=== PATIENT | female | born 1960 | race Caucasian/White ===

== ENCOUNTER 2016-05-22 15:20 | Emergency (ER) | payer OTHER ==
[2016-05-22 15:27] VITALS: RESP 18
[2016-05-22] MEDS ORDERED: NS 500 ML IV ONE (15:52)
[2016-05-22] MEDS ORDERED: IPRATROPIUM/ALBUTEROL 3 ML DEYVIAL IH ONE (15:53)
--- NOTE | 2016-05-22 15:58 | EDPHY ---
General - History Smoking Status: Current every day smoker Time Seen by Provider: 05/22/16 15:46 Narrative: CHIEF COMPLAINT: Shortness of breath, cough HISTORY OF PRESENT ILLNESS: Patient has 3 days history of cough, shortness of breath, body aches, chills. Symptoms started abruptly. They have been present constantly. Mild 1st now moderate to severe. Worse when lying supine. Some improvement rest. She is a smoker but has not smoked in 2 days. The symptoms are the same as when she had pneumonia in the past. She has had some subjective fever and chills. No nausea or vomiting. Some chest pain with coughing and deep inspiration. This has also been present for 3 days. No abdominal or urinary complaints. She does have lupus and takes Plaquenil for this. No other associated complaints or modifying factors. REVIEW OF SYSTEMS: Ten systems reviewed and are negative unless otherwise noted in the HPI PERTINENT MEDICAL HISTORY: Lupus, taking Plaquenil. Smoker EXAMINATION General Appearance: Alert, no distress Head: normocephalic, atraumatic Eyes: Pupils equal and round, no conjunctival pallor or injection. EOMs intact. ENT, Mouth: Mucous membranes moist. Uvula midline. Neck: Normal inspection, supple, non-tender Respiratory: Right-sided rhonchi and dry crackles. There is some wheezing on the right. No diminishment. No consolidation. No retractions. No distress. Cardiovascular: Regular rate and rhythm. No murmur. Pulses intact distally. Gastrointestinal: Abdomen is soft and nontender Back: non-tender, no bony abnormalities Neurological: A&O, nonfocal, normal gait Skin: Warm and dry, no rash Extremities: Nontender, no pedal edema Psychiatric: Mood and affect normal DIFFERENTIAL DIAGNOSES: Including but not limited to pneumonia, bronchitis, influenza, PE, pneumonitis MDM: 3:50 p.m. Cough, shortness of breath and pleuritic pain. The patient is immune compromised is from her lupus treated with Plaquenil. Vital signs are actually quite good without any tachycardia, tachypnea or hypoxia. Given her pain and smoking status I have also ordered a D-dimer. Clinical suspicion for PE is very low but she does appear to have pneumonia by examination. DuoNeb has been ordered. Laboratory studies, EKG and chest x-ray are pending. 4:25 p.m. Chest x-ray as interpreted by me as a right lower lobe pneumonia. She does not meet SIRS criteria. She does have a heart rate of 96, but she has no tachypnea , no fever. However, given her smoking status, immune compromise, and leukocytosis I have now ordered blood cultures and lactic acid. Also providing IV fluid, and will provide antibiotic coverage appropriate for her status. Plan for admission to the hospital given previous pneumonia with previous outpatient failure. 4:50 p.m. X-rays confirmed a right middle lobe and right lower lobe pneumonia. Her heart rate has slightly increased. We have started cefepime and Levaquin given her immune-compromised status. Proceed with admission for pneumonia. Patient is comfortable this plan. She will be admitted stable condition. 5:10 p.m. I discussed the case with Dr. Pro. She will admit the patient. She is admitted in stable condition. Blood cultures were drawn. Lactic acid is negative. She remains hemodynamically stable with mild, intermittent tachycardia. No hypoxia. No hypotension. SUPERVISION: This patient was independently evaluated without direct examination by the attending physician. Case was discussed with attending physician. Case discussed with Dr. Francis ([facility]) - Diagnostics Imaging Results: Imaging Impressions Chest X-Ray 05/22/16 15:52 Impression: 1. Right middle lobe and right lower lobe acute pneumonia. 2. Recommend follow up until clear. - Objective Vital Signs: Initial Vital Signs Temperature (C) 36.3 C 05/22/16 15:24 Heart Rate 96 05/22/16 15:24 Respiratory Rate 18 05/22/16 15:24 Blood Pressure 108/62 05/22/16 15:24 O2 Sat (%) 94 05/22/16 15:24 O2 Delivery Mode Room Air Allergies/Adverse Reactions: ketorolac tromethamine [From Toradol] Allergy (Mild, Verified 05/22/16 15:24) Abdominal Pain pregabalin [From Lyrica] Allergy (Verified 05/22/16 15:24) prochlorperazine edisylate [From Compazine] Allergy (Verified 05/22/16 15:24) prochlorperazine maleate [From Compazine] Allergy (Verified 05/22/16 15:24) Sulfa (Sulfonamide Antibiotics) Allergy (Verified 05/22/16 15:24) Home Medications: Medication Instructions Recorded Hydroxychloroquine Sulfate 200 mg PO BID 01/14/14 [Plaquenil 200 mg (*)] Venlafaxine Xr [Effexor Xr 75MG 225 mg PO DAILY 01/14/14 (*)] Amitriptyline HCl [Elavil 100 MG 100 mg PO HS 05/22/16 (*)] Levothyroxine [Synthroid 88 mcg 88 mcg PO DAILY06 05/22/16 (*)] levOFLOXACIN [levAQUIN (*)] 750 mg PO DAILY #4 tab 05/22/16 morphINE SR [Ms Contin/Oramorph 15 15 mg PO BID 05/22/16 mg (*)] oxyCODONE/APAP 5/325 [Percocet 1 tab PO TID 05/22/16 5325 (*)] Laboratory Results: Laboratory Results 05/22/16 16:00 05/22/16 16:00 05/22/16 05/22/16 05/22/16 16:40 16:00 16:00 WBC RBC Hgb Hct MCV MCH MCHC RDW Plt Count MPV Neut % (Auto) Lymph % (Auto) [place] % (Auto) Eos % (Auto) Baso % (Auto) Nucleat RBC Rel Count Absolute Neuts (auto) Absolute Lymphs (auto) Absolute Monos (auto) Absolute Eos (auto) Absolute Basos (auto) Absolute Nucleated RBC Immature Gran % Immature Gran # VBG Lactic Acid 1.2 mmol/L mmol/L (0.7-2.1) Sodium 135 mEq/L mEq/L (134-144) Potassium 4.3 mEq/L mEq/L (3.5-5.2) Chloride 103 mEq/L mEq/L (97-110) Carbon Dioxide 22 mEq/l mEq/l (22-31) Anion Gap 10 mEq/L mEq/L (8-16) BUN 9 mg/dL mg/dL (7-23) Creatinine 0.6 mg/dL mg/dL (0.6-1.0) Estimated GFR > 60 Glucose 127 mg/dL H mg/dL (70-100) Calcium 8.8 mg/dL mg/dL (8.5-10.4) Total Bilirubin 0.4 mg/dL mg/dL (0.1-1.4) Conjugated Bilirubin 0.4 mg/dL mg/dL (0.0-0.5) Unconjugated Bilirubin 0.0 mg/dL mg/dL (0.0-1.1) AST 19 IU/L IU/L (14-46) ALT 53 IU/L H IU/L (9-52) Alkaline Phosphatase 179 IU/L H IU/L (38-126) Troponin I < 0.012 ng/mL ng/mL (0-0.034) NT-Pro-B Natriuret Pep 947 pg/mL H pg/mL (0-125) Total Protein 5.5 g/dL L g/dL (6.3-8.2) Albumin 3.1 g/dL L g/dL (3.5-5.0) Lipase < 10.0 IU/L L IU/L (23-300) Influenza Typ A,B (DFA) NEGATIVE FOR FLU (NEGATIVE) 05/22/16 16:00 WBC 12.98 10^3/uL H 10^3/uL (3.80-9.50) RBC 3.16 10^6/uL L 10^6/uL (4.18-5.33) Hgb 10.9 g/dL L g/dL (12.6-16.3) Hct 32.0 % L % (38.0-47.0) MCV 101.3 fL H fL (81.5-99.8) MCH 34.5 pg H pg (27.9-34.1) MCHC 34.1 g/dL g/dL (32.4-36.7) RDW 12.8 % % (11.5-15.2) Plt Count 215 10^3/uL 10^3/uL (150-400) MPV 9.7 fL fL (8.7-11.7) Neut % (Auto) 78.6 % H % (39.3-74.2) Lymph % (Auto) 10.4 % L % (15.0-45.0) [place] % (Auto) 7.9 % % (4.5-13.0) Eos % (Auto) 2.2 % % (0.6-7.6) Baso % (Auto) 0.4 % % (0.3-1.7) Nucleat RBC Rel Count 0.0 % % (0.0-0.2) Absolute Neuts (auto) 10.19 10^3/uL H 10^3/uL (1.70-6.50) Absolute Lymphs (auto) 1.35 10^3/uL 10^3/uL (1.00-3.00) Absolute Monos (auto) 1.03 10^3/uL H 10^3/uL (0.30-0.80) Absolute Eos (auto) 0.29 10^3/uL 10^3/uL (0.03-0.40) Absolute Basos (auto) 0.05 10^3/uL 10^3/uL (0.02-0.10) Absolute Nucleated RBC 0.00 10^3/uL 10^3/uL (0-0.01) Immature Gran % 0.5 % % (0.0-1.1) Immature Gran # 0.07 10^3/uL 10^3/uL (0.00-0.10) VBG Lactic Acid Sodium Potassium Chloride Carbon Dioxide Anion Gap BUN Creatinine Estimated GFR Glucose Calcium Total Bilirubin Conjugated Bilirubin Unconjugated Bilirubin AST ALT Alkaline Phosphatase Troponin I NT-Pro-B Natriuret Pep Total Protein Albumin Lipase Influenza Typ A,B (DFA) Medications Given: Discontinued Medications Albuterol/Ipratropium (Duoneb) 3 ml IH EDNOW ONE Stop: 05/22/16 15:54 Last Admin: 05/22/16 16:30 Dose: 3 ml Sodium Chloride (Ns) 500 mls @ 0 mls/hr IV ONCE ONE PRN Reason: As Directed Stop: 05/22/16 15:53 Last Admin: 05/22/16 16:29 Dose: 500 mls Cefepime HCl 2 gm/ Dextrose 100 mls @ 200 mls/hr IV EDNOW ONE PRN Reason: Protocol Stop: 05/22/16 17:00 Last Admin: 05/22/16 16:57 Dose: 100 mls Levofloxacin/Dextrose (Levaquin 750 Mg (Premix)) 150 mls @ 100 mls/hr IV EDNOW ONE PRN Reason: Protocol Stop: 05/22/16 18:00 Last Admin: 05/22/16 18:22 Dose: 150 mls Departure - Departure Disposition: Home, Routine, Self-Care Clinical Impression: Right middle lobe pneumonia Qualifiers: Pneumonia type: due to unspecified organism Qualified Code(s): J18.1 - Lobar pneumonia, unspecified organism Right lower lobe pneumonia Qualifiers: Pneumonia type: due to unspecified organism Qualified Code(s): J18.1 - Lobar pneumonia, unspecified organism Condition: Good Additional Instructions: Follow up with your primary care doctor tomorrow or return here immediately if you get worse Referrals: Tammi Porter MD [Primary Care Provider] - As per Instructions Prescriptions: levOFLOXACIN [levAQUIN (*)] 750 mg PO DAILY #4 tab
--- NOTE | 2016-05-22 15:58 | CPEKG ---
Heart Rate: 92 RR Interval: 652 P-R Interval: 136 QRSD Interval: 90 QT Interval: 364 QTC Interval: 451 P [place]: 66 QRS [place]: 50 T Wave [place]: 71 EKG Severity - NORMAL ECG - EKG Impression: SINUS RHYTHM Electronically Signed By: Davion Malin 23-May-2016 09:00:03
[2016-05-22 16:11] LABS: % IMMATURE GRANULYOCYTES 0.5 % (0.0-1.1); ABSOLUTE IMMATURE GRANULOCYTES 0.07 10^3/uL (0.00-0.10); ADD DIFF? NO; ADD MORPH? NO; ADD SCAN? NO; ATYPICAL LYMPHOCYTE FLAG 0 (0-99); FRAGMENT RBC FLAG 0 (0-99); HEMOGLOBIN 10.9 g/dL (12.6-16.3); LEFT SHIFT FLG 50 (0-99); LIPEMIA HEMOLYSIS FLAG 90 (0-99); MEAN CELL HEMOGLOBIN 34.5 pg (27.9-34.1); MEAN CELL HEMOGLOBIN CONCENTR. 34.1 g/dL (32.4-36.7); MEAN CELL VOLUME 101.3 fL (81.5-99.8); MEAN PLATELET VOLUME 9.7 fL (8.7-11.7); PLATELET CLUMPS FLAG 0 (0-99); PLATELET COUNT 215 10^3/uL (150-400); RED BLOOD CELL COUNT 3.16 10^6/uL (4.18-5.33); RED CELL DISTRIBUTION WIDTH 12.8 % (11.5-15.2)
[2016-05-22] MEDS ORDERED: CEFEPIME HCL 2 GM in D5W 100 ML IV ONE (16:31)
[2016-05-22 16:36] LABS: ALANINE AMINOTRANSFERASE 53 IU/L (9-52); ALBUMIN 3.1 g/dL (3.5-5.0); ALKALINE PHOSPHATASE 179 IU/L (38-126); ANION GAP 10 mEq/L (8-16); ASPARTATE AMINOTRANSFERASE 19 IU/L (14-46); BILIRUBIN,TOTAL 0.4 mg/dL (0.1-1.4); BILIRUBIN-CONJUGATED 0.4 mg/dL (0.0-0.5); CALCIUM 8.8 mg/dL (8.5-10.4); CARBON DIOXIDE 22 mEq/l (22-31); CHLORIDE 103 mEq/L (97-110); CREATININE 0.6 mg/dL (0.6-1.0); GLOMERULAR FILTRATION RATE > 60; GLUCOSE 127 mg/dL (70-100); POTASSIUM 4.3 mEq/L (3.5-5.2); SODIUM 135 mEq/L (134-144); TOTAL PROTEIN 5.5 g/dL (6.3-8.2)
[2016-05-22 16:46] LABS: TROPONIN I < 0.012 ng/mL (0-0.034)
[2016-05-22] MEDS ORDERED: ACETAMINOPHEN 325 MG TAB PO PRN (18:10)
[2016-05-22] MEDS ORDERED: ONDANSETRON DISINTEGRATING 4 MG TAB PO PRN (18:10)
[2016-05-22] MEDS ORDERED: ONDANSETRON 4 MG/2 ML VIAL IVP PRN (18:10)
[2016-05-22] MEDS ORDERED: ACETAMINOPHEN 500 MG TAB PO ONE (18:50)
[2016-05-22 18:56] VITALS: O2SAT 92
--- NOTE | 2016-05-22 19:13 | GHP ---
[f rep st] HISTORY AND PHYSICAL DATE OF ADMISSION: 05/22/2016 CHIEF COMPLAINT: Pneumonia. HISTORY OF PRESENT ILLNESS: Patient is a 56-year-old female with a history of lupus, migraines, presenting with 3 days fevers, chills, nonproductive cough, and myalgias. She also reports mild shortness of breath today. She has had normal p.o. intake. Denies dysuria. Had some nausea but no vomiting, diarrhea. Has had ill contacts; a friend has been sick with a cold. REVIEW OF SYSTEMS: I completed a 10-point review of systems, negative except as noted in HPI. PAST MEDICAL HISTORY: Lupus, migraines, chronic back pain, hypothyroidism. PAST SURGICAL HISTORY: Right TKA, cholecystectomy. FAMILY HISTORY: Mother with ovarian cancer. SOCIAL HISTORY: Lives in [place] with her son. Tobacco: 10 cigarettes a day for the past 5 years. No alcohol or illicits. ALLERGIES: Lyrica, Compazine, Toradol, sulfa. MEDICATION LIST: Percocet as needed, MS Contin 15 mg b.i.d., Synthroid 88 mcg daily, Plaquenil 200 mg b.i.d., amitriptyline 100 mg q.h.s., Effexor. PHYSICAL EXAM: VITAL SIGNS: Temperature 36.7, blood pressure /62, heart rate 80s to 90s. Respiratory rate 18, 94% on room air. GENERAL: Thin female, in no acute distress. HEENT: PERRLA, EOMI. Moist mucous membranes. CV: Regular rate and rhythm. No murmurs, gallops, rubs. LUNGS: Clear to auscultation bilaterally. ABDOMEN: Soft, nontender, nondistended. Positive bowel sounds. : No suprapubic tenderness. MUSCULOSKELETAL: 5/5 upper and lower extremity strength. SKIN: Warm, dry, no rash or ulceration. NEURO: 2- 12 intact. PSYCH: Alert and oriented x3. LABS: Lactate 1.2. Sodium 135, potassium 4.3, chloride 103, creatinine 0.6, glucose 127, ALT is 53, AST 19, alkaline phosphatase 197. BNP is 947. Troponin less than 0.012. Albumin 3.1, total protein 5.5. Lipase less than 10. Chest x-ray personally reviewed by me: Right middle and right lower lobe pneumonia. EKG personally reviewed by me: Normal sinus rhythm. No ST elevation depression. ASSESSMENT/PLAN: 1. Community-acquired pneumonia: Mild infiltrate on chest x-ray and mildly elevated white count, negative lactate and is not requiring oxygen. Negative influenza. After discussion, patient would like to go home, which I think is reasonable given that she is hemodynamically stable. Will treat for a total of 5 days of antibiotics with Levaquin. She got a dose here. 2. Hypothyroidism: Resume levothyroxine. 3. Depression and anxiety: Continue home medications. 4. Lupus, on Plaquenil. 5. Chronic back pain: Continue MS Contin and Percocet as needed. DISPOSITION: After discussion with the patient, she would like to go home. I think this is reasonable. She will follow up with her PCP, Dr. Porter. /[id number]/MODL MTDD
--- NOTE | 2016-05-22 19:13 | GDS ---
[f rep st] DISCHARGE SUMMARY DISCHARGE DIAGNOSES: 1. Community-acquired pneumonia. 2. History of anxiety. 3. Migraines. 4. Hypothyroidism. 5. Lupus. BRIEF HISTORY OF PRESENT ILLNESS: Patient presented with symptoms consistent with pneumonia and was found to have an infiltrate on chest x-ray. Negative influenza. Patient wished to go home, which I think is reasonable given that she is hemodynamically stable. Will discharge with Levaquin for a total 5 days of antibiotics. Please see detailed H and P for assessment and plan dated today. /[id number]/MODL
[2016-05-22 19:25] VITALS: BP 112/70; PULSE 76; TEMP 97.5
[2016-05-22] MEDS ORDERED: HYDROXYCHLOROQUINE SULFATE 200 MG TAB PO SCH (21:00)
[2016-05-22] MEDS ORDERED: morphINE SR 15 MG TAB PO SCH (21:00)
[2016-05-22] MEDS ORDERED: AMITRIPTYLINE HCL 100 MG TAB PO SCH (21:00)
[2016-05-22] MEDS ORDERED: OXYCODONE/APAP 5/325 TAB PO SCH (22:00)
[2016-05-23] MEDS ORDERED: LEVOTHYROXINE 88 MCG TAB PO SCH (06:00)
[2016-05-23] MEDS ORDERED: VENLAFAXINE XR 75 MG CAP PO SCH (09:00)
[2016-05-23] MEDS ORDERED: AZITHROMYCIN 250 MG TAB PO SCH (09:00)
== END 2016-05-22 19:25 | disposition home or self-care (01) ==
LOC: MERGE 15:20 → UNDOADMOB 17:09
DX: J18.1 Lobar pneumonia, unspecified organism (principal); E03.9 Hypothyroidism, unspecified; M32.9 Systemic lupus erythematosus, unspecified
CPT/HCPCS: 71020; 93005; 96374; 99285; J0692; J1956

== ENCOUNTER 2016-12-16 11:29 | Emergency (ER) | payer OTHER ==
--- NOTE | 2016-12-16 13:19 | CPEKG ---
Heart Rate: 71 RR Interval: 845 P-R Interval: 156 QRSD Interval: 76 QT Interval: 416 QTC Interval: 453 P [place]: 63 QRS [place]: 39 T Wave [place]: 57 EKG Severity - NORMAL ECG - EKG Impression: SINUS RHYTHM Electronically Signed By: Ilia Villanueva 16-Dec-2016 14:24:05
--- NOTE | 2016-12-16 13:19 | CPEKG ---
Heart Rate: 71 RR Interval: 845 P-R Interval: 156 QRSD Interval: 76 QT Interval: 416 QTC Interval: 453 P [place]: 63 QRS [place]: 39 T Wave [place]: 57 EKG Severity - NORMAL ECG - EKG Impression: SINUS RHYTHM Electronically Signed By: Ilia Villanueva 16-Dec-2016 14:24:05
[2016-12-16 13:27] LABS: PLATELET COUNT 204 10^3/uL (150-400)
--- NOTE | 2016-12-16 13:54 | EDPHY ---
H & P Stated Complaint: POSSIBLE MULTIPLE SEIZURES OVER THE WEEKEND. HIT HEAD ON DRESSER Time Seen by Provider: 12/16/16 13:01 HPI/ROS: CHIEF COMPLAINT: Episodes of unexplained shaking and lightheadedness HISTORY OF PRESENT ILLNESS: The patient presents to the ED after she has had 3 episodes of unexplained shaking and lightheadedness over the past week. She describes discrete episodes lasting 5 minutes. She reports she notes a tremor in her arms and generalized weakness. She has to be assisted to a couch and has fallen once. She did strike her head on a couch during 1 of the falls over the weekend. Patient denies any acute headache currently. She does have a history of cluster headache. The patient reports that she is fully conscious during these episodes. The patient does have a history of lupus. She denies fever. She denies any focal numbness or weakness. She currently is asymptomatic. The patient is scheduled to have a follow-up MRI of her brain her history of lupus in the coming weeks. The patient did have an unremarkable MRI of her brain in March of this year during in the ED visit for evaluation of post concussive symptoms. The patient denies any history of cardiac disease. She denies dysuria or additional acute complaints. REVIEW OF SYSTEMS: A comprehensive 10 point review of systems is otherwise negative aside from elements mentioned in the history of present illness. Source: Patient Exam Limitations: No limitations - Personal History Current Tetanus/Diphtheria Vaccine: Yes Current Tetanus Diphtheria and Acellular Pertussis (TDAP): Yes Tetanus Vaccine Date: 2005 - Medical/Surgical History Hx Asthma: No Hx Chronic Respiratory Disease: Yes Hx Diabetes: No Hx Cardiac Disease: No Hx Renal Disease: No Hx Cirrhosis: No Hx Alcoholism: No Hx HIV/AIDS: No Hx Splenectomy or Spleen Trauma: No Other PMH: lupus/cluster migraine headaches/agustín,right knee replacement PNEUMONIA, hypothyroid, CHRONIC LUNG DISEASE/ pancreatitis - Social History Smoking Status: Current every day smoker - Physical Exam Exam: General Appearance: Alert, no distress Eyes: Pupils equal and round no pallor or injection ENT, Mouth: Mucous membranes moist Respiratory: There are no retractions, lungs are clear to auscultation Cardiovascular: Regular rate and rhythm Gastrointestinal: Abdomen is soft and nontender, no masses, bowel sounds normal Neurological: A&O, normal motor function, normal sensory exam, normal cranial nerves Skin: Warm and dry, no rashes Musculoskeletal: Neck is supple nontender Extremities: symmetrical, full range of motion Psychiatric: Patient is oriented X 3, there is no agitation Constitutional: Initial Vital Signs Heart Rate 86 12/16/16 11:34 Respiratory Rate 18 12/16/16 11:34 Blood Pressure 89/63 L 12/16/16 11:34 O2 Sat (%) 97 12/16/16 11:34 O2 Delivery Mode Room Air Allergies/Adverse Reactions: ketorolac tromethamine [From Toradol] Allergy (Mild, Verified 05/22/16 15:24) Abdominal Pain pregabalin [From Lyrica] Allergy (Verified 05/22/16 15:24) prochlorperazine edisylate [From Compazine] Allergy (Verified 05/22/16 15:24) prochlorperazine maleate [From Compazine] Allergy (Verified 05/22/16 15:24) Sulfa (Sulfonamide Antibiotics) Allergy (Verified 05/22/16 15:24) Home Medications: Medication Instructions Recorded Hydroxychloroquine Sulfate 200 mg PO BID 01/14/14 [Plaquenil 200 mg (*)] Venlafaxine Xr [Effexor Xr 75MG 225 mg PO DAILY 01/14/14 (*)] Amitriptyline HCl [Elavil 100 MG 100 mg PO HS 05/22/16 (*)] Levothyroxine [Synthroid 88 mcg 88 mcg PO DAILY06 05/22/16 (*)] morphINE SR [Ms Contin/Oramorph 15 15 mg PO BID 05/22/16 mg (*)] oxyCODONE/APAP 5/325 [Percocet 1 tab PO TID 05/22/16 5/325 (*)] Medical Decision Making ED Course/Re-evaluation: The patient presents to the ED with several episodes of lightheadedness and unexplained tremor. This does not sound as if it is a seizure disorder as the patient is fully conscious during the episodes. I have observed no seizure activity in the ED. Given the fact she did fall and strike her head a CT scan of the brain was ordered to exclude evidence of subarachnoid or subdural hematoma. This was negative. The patient's CBC, serum chemistries and electrolytes are within normal limits. The patient's EKG demonstrates no evidence of an arrhythmia. At this point time I do feel the patient can follow up with her regular primary care provider at [facility] as scheduled. She is advised to return to the ED for any recurrent symptoms, severe headache, numbness, weakness or other concerns. Differential Diagnosis: Differential diagnosis considered includes vasovagal episode, metabolic abnormality, dehydration, arrhythmia and less likely seizure - Data Points Laboratory Results: Laboratory Results 12/16/16 12:50 12/16/16 12:50 12/16/16 12/16/16 12:50 12:50 WBC 6.28 10^3/uL 10^3/uL (3.80-9.50) RBC 3.08 10^6/uL L 10^6/uL (4.18-5.33) Hgb 10.8 g/dL L g/dL (12.6-16.3) Hct 31.9 % L % (38.0-47.0) MCV 103.6 fL H fL (81.5-99.8) MCH 35.1 pg H pg (27.9-34.1) MCHC 33.9 g/dL g/dL (32.4-36.7) RDW 14.2 % % (11.5-15.2) Plt Count 204 10^3/uL 10^3/uL (150-400) MPV 9.3 fL fL (8.7-11.7) Neut % (Auto) 42.9 % % (39.3-74.2) Lymph % (Auto) 43.3 % % (15.0-45.0) [place] % (Auto) 9.4 % % (4.5-13.0) Eos % (Auto) 3.7 % % (0.6-7.6) Baso % (Auto) 0.5 % % (0.3-1.7) Nucleat RBC Rel Count 0.0 % % (0.0-0.2) Absolute Neuts (auto) 2.70 10^3/uL 10^3/uL (1.70-6.50) Absolute Lymphs (auto) 2.72 10^3/uL 10^3/uL (1.00-3.00) Absolute Monos (auto) 0.59 10^3/uL 10^3/uL (0.30-0.80) Absolute Eos (auto) 0.23 10^3/uL 10^3/uL (0.03-0.40) Absolute Basos (auto) 0.03 10^3/uL 10^3/uL (0.02-0.10) Absolute Nucleated RBC 0.00 10^3/uL 10^3/uL (0-0.01) Immature Gran % 0.2 % % (0.0-1.1) Immature Gran # 0.01 10^3/uL 10^3/uL (0.00-0.10) Sodium 133 mEq/L L mEq/L (134-144) Potassium 3.9 mEq/L mEq/L (3.5-5.2) Chloride 101 mEq/L mEq/L (97-110) Carbon Dioxide 23 mEq/l mEq/l (22-31) Anion Gap 9 mEq/L mEq/L (8-16) BUN 8 mg/dL mg/dL (7-23) Creatinine 0.7 mg/dL mg/dL (0.6-1.0) Estimated GFR > 60 Glucose 70 mg/dL mg/dL (70-100) Calcium 8.2 mg/dL L mg/dL (8.5-10.4) Troponin I < 0.012 ng/mL ng/mL (0.000-0.034) Departure - Departure Disposition: Home, Routine, Self-Care Clinical Impression: Head injury, Shaking Condition: Good Instructions: Weakness (ED) Additional Instructions: 1. Please return to the emergency department for any recurrent symptoms, headache, numbness or weakness. 2. Your head CT scan, EKG and laboratory studies are all within normal limits. 3. Please follow up with your primary care provider at [facility] as scheduled to scheduled for outpatient MRI. Referrals: Tammi Porter MD [Primary Care Provider] - As per Instructions
[2016-12-16 14:50] VITALS: BP 110/65; PULSE 77; RESP 16; TEMP 96.8; O2SAT 96
== END 2016-12-16 14:57 | disposition home or self-care (01) ==
DX: S09.90XA Unspecified injury of head, initial encounter (principal); R25.1 Tremor, unspecified; F17.200 Nicotine dependence, unspecified, uncomplicated; W22.8XXA Striking against or struck by other objects, initial encounter

== ENCOUNTER 2017-06-13 13:18 | Emergency (ER) | payer OTHER ==
--- NOTE | 2017-06-13 13:46 | EDPHY ---
H & P Time Seen by Provider: 06/13/17 13:28 HPI/ROS: CHIEF COMPLAINT: Headache, possible fall head injury HISTORY OF PRESENT ILLNESS: 57-year-old female presents to the emergency department with headache and feeling confused. She states 3 days ago she was in her bed and noticed a painful lump to the top of her head and felt a headache. She thinks she may have hit her head on the ground. She states that the painful lump to the top of her head has gone down some but is still painful. She thinks that she may have fallen and hit her head but she does not remember. She lives with her 27-year-old son who did not hear her fall. No witnessed seizure activity. She states since that time she has felt confused. She has felt nauseous although no vomiting. She has had some dizziness. No fevers or chills. No pain in her chest or difficulty breathing. She has had very little appetite. She does have a history of migraine headaches but she feels that this is different. 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 REVIEW OF SYSTEMS: Constitutional: No fever, no chills. Eyes: No double or blurry vision. ENT: No sore throat. Respiratory: No cough, no shortness of breath. Cardiac: No chest pain. Gastrointestinal: Nausea. No abdominal pain, vomiting or diarrhea. Genitourinary: No dysuria. Musculoskeletal: No neck or back pain. Skin: No rashes. Neurological: headache. Past Medical/Surgical History: Lupus, cluster headaches, migraine headaches, pancreatitis, chronic lung disease , pneumonia, hypothyroidism, cholecystectomy Social History: Smoking Status: Current every day smoker Physical Exam: General Appearance: Alert, no distress. Mentating normally and answering questions appropriately. She is tearful. Patient has a tender palpable lump to very top of her head. There is no redness or warmth. No signs of abscess or infection. No bruising. No abrasions or lacerations. Eyes: Pupils equal and round. Extraocular motions are all intact. ENT: Mouth: Mucous membranes moist. Respiratory: No wheezing, rhonchi, or rales, lungs are clear to auscultation. Cardiovascular: Regular rate and rhythm. Gastrointestinal: Abdomen is soft and nontender, no masses, no rebound or guarding, bowel sounds normal. Neurological: Alert and oriented x 3, cranial nerves II through XII grossly intact Skin: Warm and dry, no rashes. Musculoskeletal: Nontender to palpate along the cervical, thoracic or lumbar spine. Neck is supple. Extremities: Full range of motion and no peripheral edema. Psychiatric: Patient is oriented X 3, there is no agitation. Constitutional: Initial Vital Signs Temperature (C) 36.7 C 06/13/17 13:23 Heart Rate 99 06/13/17 13:23 Respiratory Rate 16 06/13/17 13:23 Blood Pressure 149/135 H 06/13/17 13:23 O2 Sat (%) 95 06/13/17 13:23 O2 Delivery Mode Room Air O2 (L/minute) 2 Allergies/Adverse Reactions: ketorolac tromethamine [From Toradol] Allergy (Mild, Verified 06/13/17 13:22) Abdominal Pain pregabalin [From Lyrica] Allergy (Verified 06/13/17 13:22) prochlorperazine edisylate [From Compazine] Allergy (Verified 06/13/17 13:22) prochlorperazine maleate [From Compazine] Allergy (Verified 06/13/17 13:22) Sulfa (Sulfonamide Antibiotics) Allergy (Verified 06/13/17 13:22) Home Medications: Medication Instructions Recorded Hydroxychloroquine Sulfate 200 mg PO BID 01/14/14 [Plaquenil 200 mg (*)] Venlafaxine Xr [Effexor Xr 75MG 225 mg PO DAILY 01/14/14 (*)] Amitriptyline HCl [Elavil 100 MG 100 mg PO HS 05/22/16 (*)] Levothyroxine [Synthroid 88 mcg 88 mcg PO DAILY06 05/22/16 (*)] Ondansetron Odt [Zofran Odt] 4 mg PO Q4PRN #8 tab 06/13/17 Valium 06/13/17 Medical Decision Making - Diagnostics Imaging Results: Imaging Impressions Head CT 06/13/17 13:42 Impression: Normal. Findings and recommendations discussed with PANCHO LOCO at 1500 hour, 2017. Final report concurs with initial preliminary interpretation. Imaging: Discussed imaging studies w/ chemical pathologist Radiologist ED Course/Re-evaluation: 49-year-old female presents to the emergency department with headache and feeling extremely nauseous. She does have a history of migraine and cluster headaches although she states this feels different. Patient was given Zofran IV normal saline. Laboratory studies were unremarkable. CT imaging of her brain reveals nothing acute. Patient felt that her nausea was nearly completely resolved. She was still complaining of a headache. Patient does have a history of cluster headaches. She was placed on 2 L of oxygen. The patient also received 10 mg of IV Decadron. She was feeling better. The patient is requesting to be discharged home since her ride needs to leave. I did offer further workup, however the patient declined. She states she is feeling better would like to be discharged home. I did encourage close follow- up with her primary care provider with [facility] and to return if she developed recurring headache, vomiting, altered mental status, or any other concerns. Differential Diagnosis: Altered mental status including but not limited to hypoglycemia, infectious process, electrolyte abnormality, head injury and intoxicants. Head injury including but not limited to concussion, skull fracture, intraparenchymal contusion, subarachnoid, subdural and epidural hematoma. - Data Points Laboratory Results: Laboratory Results 06/13/17 12:50 06/13/17 12:50 06/13/17 06/13/17 06/13/17 13:50 12:50 12:50 WBC 6.54 10^3/uL 10^3/uL (3.80-9.50) RBC 4.05 10^6/uL L 10^6/uL (4.18-5.33) Hgb 13.0 g/dL g/dL (12.6-16.3) Hct 37.7 % L % (38.0-47.0) MCV 93.1 fL fL (81.5-99.8) MCH 32.1 pg pg (27.9-34.1) MCHC 34.5 g/dL g/dL (32.4-36.7) RDW 14.8 % % (11.5-15.2) Plt Count 284 10^3/uL 10^3/uL (150-400) MPV 8.6 fL L fL (8.7-11.7) Neut % (Auto) 64.0 % % (39.3-74.2) Lymph % (Auto) 27.2 % % (15.0-45.0) [place] % (Auto) 7.3 % % (4.5-13.0) Eos % (Auto) 0.9 % % (0.6-7.6) Baso % (Auto) 0.3 % % (0.3-1.7) Nucleat RBC Rel Count 0.0 % % (0.0-0.2) Absolute Neuts (auto) 4.18 10^3/uL 10^3/uL (1.70-6.50) Absolute Lymphs (auto) 1.78 10^3/uL 10^3/uL (1.00-3.00) Absolute Monos (auto) 0.48 10^3/uL 10^3/uL (0.30-0.80) Absolute Eos (auto) 0.06 10^3/uL 10^3/uL (0.03-0.40) Absolute Basos (auto) 0.02 10^3/uL 10^3/uL (0.02-0.10) Absolute Nucleated RBC 0.00 10^3/uL 10^3/uL (0-0.01) Immature Gran % 0.3 % % (0.0-1.1) Immature Gran # 0.02 10^3/uL 10^3/uL (0.00-0.10) Sodium 137 mEq/L mEq/L (135-145) Potassium 3.6 mEq/L mEq/L (3.5-5.2) Chloride 102 mEq/L mEq/L (97-110) Carbon Dioxide 24 mEq/l mEq/l (22-31) Anion Gap 11 mEq/L mEq/L (8-16) BUN 7 mg/dL mg/dL (7-23) Creatinine 0.7 mg/dL mg/dL (0.6-1.0) Estimated GFR > 60 Glucose 103 mg/dL H mg/dL (70-100) Calcium 9.1 mg/dL mg/dL (8.5-10.4) Troponin I < 0.012 ng/mL ng/mL (0.000-0.034) Medications Given: Discontinued Medications Acetaminophen (Tylenol) 650 mg PO EDNOW ONE Stop: 06/13/17 14:41 Last Admin: 06/13/17 14:45 Dose: 650 mg Dexamethasone (Decadron Injection) 10 mg IVP EDNOW ONE Stop: 06/13/17 15:28 Last Admin: 06/13/17 15:33 Dose: 10 mg Ondansetron HCl (Zofran) 4 mg IVP EDNOW ONE Stop: 06/13/17 14:03 Last Admin: 06/13/17 14:04 Dose: 4 mg Departure - Departure Disposition: Home, Routine, Self-Care Clinical Impression: Headache Qualifiers: Headache type: unspecified Headache chronicity pattern: acute headache Intractability: not intractable Qualified Code(s): R51 - Headache Head injury Qualifiers: Encounter type: initial encounter Qualified Code(s): S09.90XA - Unspecified injury of head, initial encounter Condition: Good Instructions: Head Injury (ED), Acute Headache (ED) Additional Instructions: Return to the emergency department she developed worsening headache, vomiting, altered mental status, or if you feel worse in any way. Referrals: Charlee Allred MD [[facility] Primary Care Provider] - As per Instructions [facility] ,. [Edm Groups for Call Sched] - As per Instructions Prescriptions: Ondansetron Odt [Zofran Odt] 4 mg PO Q4PRN #8 tab
[2017-06-13 13:55] LABS: PLATELET COUNT 284 10^3/uL (150-400)
--- NOTE | 2017-06-13 14:00 | CPEKG ---
Heart Rate: 88 RR Interval: 682 P-R Interval: 136 QRSD Interval: 90 QT Interval: 388 QTC Interval: 470 P Sullivan: 73 QRS Sullivan: 40 T Wave Sullivan: 78 EKG Severity - BORDERLINE ECG - EKG Impression: SINUS RHYTHM EKG Impression: BORDERLINE T ABNORMALITIES, ANT-LAT LEADS Electronically Signed By: Raz Shultz 14-Jun-2017 19:12:11
[2017-06-13] MEDS ORDERED: ONDANSETRON 4 MG/2 ML VIAL IVP ONE (14:02)
[2017-06-13] MEDS ORDERED: ACETAMINOPHEN 325 MG TAB PO ONE (14:40)
[2017-06-13] MEDS ORDERED: DEXAMETHASONE 10 MG/ML VIAL IVP ONE (15:27)
[2017-06-13 16:32] VITALS: BP 119/62
== END 2017-06-13 16:32 | disposition home or self-care (01) ==
DX: S09.90XA Unspecified injury of head, initial encounter (principal); F17.200 Nicotine dependence, unspecified, uncomplicated; W01.0XXA Fall on same level from slipping, tripping and stumbling without subsequent striking against object, initial encounter; Y92.89 Other specified places as the place of occurrence of the external cause
CPT/HCPCS: 70450; 93005; 96374; 96375; 99285; J1100; J2405